=== PATIENT | female | born 1965 | race Caucasian/White ===

== ENCOUNTER → 2022-05-28 07:11 | Outpatient (CLI) | payer BC, SELFPAY ==
[2022-05-28 19:49] LABS: Basophils # 0.1 K/mm3 (0-0.2); Eosinophils # 0.3 K/mm3 (0.0-0.4); Eosinophils % 3.6 % (0.1-12.0); Hemoglobin 15.1 g/dL (12.2-16.2); Lymphocytes # 1.9 K/mm3 (0.7-4.5); Lymphocytes % 27.4 % (10-50); Mean Corpuscular HGB Conc 31.5 g/dL (31.8-35.4); Mean Corpuscular Hemoglobin 30.3 pg (27.0-31.2); Mean Corpuscular Volume 96.2 fl (81-99); Mean Platelet Volume 9.2 fl (7.4-10.4); Monocytes # 0.4 K/mm3 (0.1-1.0); Monocytes % 5.3 % (1.7-9.3); Neutrophils # 4.2 K/mm3 (1.8-7.8); Neutrophils % 62.6 % (37.0-80.0); Platelet Count 374 K/mm3 (142-424); Red Blood Count 4.99 M/mm3 (4.20-5.40); Red Cell Distribution Width 13.7 % (11.5-17.5); White Blood Count 6.8 K/mm3 (4.8-10.8)
[2022-05-28 21:44] LABS: Alanine Aminotransferase 30 U/L (12-78); Albumin Level 4.5 g/dl (3.5-5.0); Albumin/Globulin Ratio 1.7 (1.1-1.8); Alkaline Phosphatase 148 U/L (38-126); Anion Gap 16.1 mEq/L (5-15); Aspartate Amino Transferase 30 U/L (14-36); Bilirubin,Total 0.2 mg/dl (0.2-1.3); Blood Urea Nitrogen 15 mg/dl (7-17); Carbon Dioxide 25 mmol/L (22.0-30.0); Chloride 105 mmol/L (98-107); Cholesterol 188 mg/dl (140-200); Estimated Glomerular Filt Rate 103 ml/min (>60); GFR (African American) 125 ML/MIN (>60); Globulin 2.7 g/dL (1.3-3.2); Glucose 124 mg/dl (74-100); HDL Cholesterol 47 mg/dl (40-60); Potassium 5.1 mmoL/L (3.5-5.1); Sodium 141 mmol/L (136-145); Total Protein,Serum 7.2 g/dl (6.3-8.2); Triglycerides 228 mg/dl (30-150); VLDL Cholesterol 46 mg/dL (0-40)
[2022-05-30 09:00] LABS: Direct LDL Cholesterol 95 mg/dL (100-129)
== END ==
PROVIDERS: PCP Nurse Practitioner; Visit Provider Nurse Practitioner
DX: E11.9 Type 2 diabetes mellitus without complications (principal); E78.5 Hyperlipidemia, unspecified; Z13.29 Encounter for screening for other suspected endocrine disorder; Z79.84 Long term (current) use of oral hypoglycemic drugs; Z79.899 Other long term (current) drug therapy
CPT/HCPCS: 80053; 80061; 82043; 84443; 85025

== ENCOUNTER → 2022-08-19 08:24 | Outpatient (CLI) | payer BC, SELFPAY ==
[2022-08-19 19:52] LABS: Anion Gap 16.9 mEq/L (5-15); Blood Urea Nitrogen 12 mg/dl (7-17); Calcium 10.1 mg/dl (8.4-10.2); Carbon Dioxide 28 mmol/L (22.0-30.0); Chloride 104 mmol/L (98-107); Estimated Glomerular Filt Rate 103 ml/min (>60); GFR (African American) 125 ML/MIN (>60); Glucose 121 mg/dl (74-100); Potassium 4.9 mmoL/L (3.5-5.1); Sodium 144 mmol/L (136-145)
== END ==
PROVIDERS: PCP Nurse Practitioner; Visit Provider Nurse Practitioner
DX: E11.9 Type 2 diabetes mellitus without complications (principal); Z79.84 Long term (current) use of oral hypoglycemic drugs
CPT/HCPCS: 80048

== ENCOUNTER → 2022-11-20 23:49 | Outpatient (CLI) | payer BC, SELFPAY ==
[2022-11-20 19:07] LABS: Coronavirus 19, PCR Not Detected (NotDetected); Influenza A, PCR Not Detected (NotDetected); Influenza B, PCR Not Detected (NotDetected)
[2022-11-20 19:35] LABS: Microalbumin/Creatinine Ratio 8.8
[2022-11-20 19:41] LABS: Creatinine,Urine Random 81 mg/dL (Not Estab.)
[2022-11-20 19:47] LABS: Alanine Aminotransferase 26 U/L (12-78); Albumin Level 4.6 g/dl (3.5-5.0); Albumin/Globulin Ratio 1.8 (1.1-1.8); Alkaline Phosphatase 126 U/L (38-126); Anion Gap 9.6 mEq/L (5-15); Aspartate Amino Transferase 27 U/L (14-36); Bilirubin,Total 0.5 mg/dl (0.2-1.3); Blood Urea Nitrogen 15 mg/dl (7-17); Calcium 9.5 mg/dl (8.4-10.2); Carbon Dioxide 26 mmol/L (22.0-30.0); Chloride 108 mmol/L (98-107); Chol/HDL Ratio 3.4 (1-3.5); Cholesterol 175 mg/dl (140-200); Estimated Glomerular Filt Rate 103 ml/min (>60); GFR (African American) 125 ML/MIN (>60); Globulin 2.6 g/dL (1.3-3.2); Glucose 125 mg/dl (74-100); HDL Cholesterol 51 mg/dl (40-60); Potassium 4.6 mmoL/L (3.5-5.1); Sodium 139 mmol/L (136-145); Total Protein,Serum 7.2 g/dl (6.3-8.2); Triglycerides 193 mg/dl (30-150); VLDL Cholesterol 39 mg/dL (0-40)
[2022-11-20 19:48] LABS: Basophils # 0.1 K/mm3 (0-0.2); Basophils % 0.9 % (0.1-2.0); Eosinophils # 0.3 K/mm3 (0.0-0.4); Hemoglobin 15.3 g/dL (12.2-16.2); Lymphocytes # 1.6 K/mm3 (0.7-4.5); Lymphocytes % 21.5 % (10-50); Mean Corpuscular Hemoglobin 30.2 pg (27.0-31.2); Mean Corpuscular Volume 94.4 fl (81-99); Mean Platelet Volume 8.9 fl (7.4-10.4); Monocytes # 0.4 K/mm3 (0.1-1.0); Monocytes % 5.4 % (1.7-9.3); Neutrophils % 68.1 % (37.0-80.0); Platelet Count 342 K/mm3 (142-424); Red Blood Count 5.08 M/mm3 (4.20-5.40); Red Cell Distribution Width 13.8 % (11.5-17.5); White Blood Count 7.3 K/mm3 (4.8-10.8)
[2022-11-20 20:08] LABS: Direct LDL Cholesterol 84.51 mg/dL (100-129)
[2022-11-20 20:50] LABS: Hemoglobin A1C 6.2 % (4.0-6.0)
== END ==
PROVIDERS: PCP Nurse Practitioner; Visit Provider Nurse Practitioner
DX: J01.00 Acute maxillary sinusitis, unspecified (principal); E11.9 Type 2 diabetes mellitus without complications; E78.5 Hyperlipidemia, unspecified; Z79.84 Long term (current) use of oral hypoglycemic drugs
CPT/HCPCS: 80053; 80061; 82043; 82570; 83036; 85025; C9803; U0003; U0005

== ENCOUNTER → 2023-05-06 23:10 | Outpatient (CLI) | payer BC, SELFPAY ==
[2023-05-06 19:27] LABS: Alanine Aminotransferase 20 U/L (12-78); Albumin Level 4.6 g/dl (3.5-5.0); Albumin/Globulin Ratio 1.8 (1.1-1.8); Alkaline Phosphatase 113 U/L (38-126); Aspartate Amino Transferase 25 U/L (14-36); Bilirubin,Total 0.3 mg/dl (0.2-1.3); Blood Urea Nitrogen 11 mg/dl (7-17); Carbon Dioxide 26 mmol/L (22.0-30.0); Chloride 107 mmol/L (98-107); Chol/HDL Ratio 2.5 (1-3.5); Cholesterol 116 mg/dl (140-200); Estimated Glomerular Filt Rate 86 ml/min (>60); GFR (African American) 104 ML/MIN (>60); Globulin 2.6 g/dL (1.3-3.2); Glucose 88 mg/dl (74-100); HDL Cholesterol 46 mg/dl (40-60); Sodium 142 mmol/L (136-145); Total Protein,Serum 7.2 g/dl (6.3-8.2); Triglycerides 84 mg/dl (30-150); VLDL Cholesterol 17 mg/dL (0-40)
[2023-05-06 19:38] LABS: Direct LDL Cholesterol 52.52 mg/dL (100-129)
[2023-05-06 19:40] LABS: Hemoglobin A1C 5.5 % (4.0-6.0)
== END ==
PROVIDERS: PCP Nurse Practitioner; Visit Provider Nurse Practitioner
DX: E11.9 Type 2 diabetes mellitus without complications (principal); E78.5 Hyperlipidemia, unspecified; E66.9 Obesity, unspecified; Z79.84 Long term (current) use of oral hypoglycemic drugs
CPT/HCPCS: 80053; 80061; 83036

== ENCOUNTER → 2023-05-16 15:48 | Outpatient (CLI) | payer BC, SELFPAY ==
--- NOTE | 2023-05-16 15:54 | US_ITS ---
FINAL REPORT TECHNIQUE: Real-time grayscale and color ultrasound of the thyroid was performed. CLINICAL HISTORY: thyroid nodularity COMPARISON: None FINDINGS: The thyroid gland measures 45 mm on the right and 43 mm on the left. The isthmus measures 2 mm. The parenchyma is within normal limits. Nodules: Left 4 x 4 x 3 mm cystic TR 1 nodule. IMPRESSION: Left cystic TR 1 nodule. No follow-up recommended per TI-RADS criteria. Reviewed, Interpreted and Dictated by Carlos Montes III, MD Transcribed by Ebony Maher Authenticated and . [facility]
== END ==
PROVIDERS: PCP Nurse Practitioner; Visit Provider Nurse Practitioner
DX: E04.1 Nontoxic single thyroid nodule (principal)
CPT/HCPCS: 76536

== ENCOUNTER → 2023-08-05 08:45 | Outpatient (CLI) | payer BC, SELFPAY ==
[2023-08-05 18:44] LABS: Alanine Aminotransferase 27 U/L (12-78); Albumin Level 4.8 g/dl (3.5-5.0); Albumin/Globulin Ratio 1.7 (1.1-1.8); Alkaline Phosphatase 111 U/L (38-126); Anion Gap 17.4 mEq/L (5-15); Aspartate Amino Transferase 33 U/L (14-36); Bilirubin,Total 0.4 mg/dl (0.2-1.3); Blood Urea Nitrogen 13 mg/dl (7-17); Carbon Dioxide 25 mmol/L (22.0-30.0); Chloride 102 mmol/L (98-107); Estimated Glomerular Filt Rate 86 ml/min (>60); GFR (African American) 104 ML/MIN (>60); Globulin 2.8 g/dL (1.3-3.2); Glucose 103 mg/dl (74-100); Potassium 5.4 mmoL/L (3.5-5.1); Sodium 139 mmol/L (136-145); Total Protein,Serum 7.6 g/dl (6.3-8.2)
[2023-08-05 18:58] LABS: Basophils # 0.1 K/mm3 (0-0.2); Basophils % 0.7 % (0.1-2.0); Eosinophils # 0.1 K/mm3 (0.0-0.4); Eosinophils % 1.9 % (0.1-12.0); Hematocrit 49.4 % (37.0-47.0); Hemoglobin 16.9 g/dL (12.2-16.2); Lymphocytes # 1.9 K/mm3 (0.7-4.5); Lymphocytes % 24.9 % (10-50); Mean Corpuscular HGB Conc 34.2 g/dL (31.8-35.4); Mean Corpuscular Volume 93.8 fl (81-99); Mean Platelet Volume 8.6 fl (7.4-10.4); Monocytes # 0.4 K/mm3 (0.1-1.0); Monocytes % 5.1 % (1.7-9.3); Neutrophils # 5.1 K/mm3 (1.8-7.8); Neutrophils % 67.5 % (37.0-80.0); Platelet Count 309 K/mm3 (142-424); Red Blood Count 5.27 M/mm3 (4.20-5.40); Red Cell Distribution Width 13.3 % (11.5-17.5); White Blood Count 7.5 K/mm3 (4.8-10.8)
[2023-08-05 19:40] LABS: Hemoglobin A1C 5.1 % (4.0-6.0)
== END ==
PROVIDERS: PCP Nurse Practitioner; Visit Provider Nurse Practitioner
DX: E11.9 Type 2 diabetes mellitus without complications (principal); Z79.84 Long term (current) use of oral hypoglycemic drugs
CPT/HCPCS: 80053; 83036; 85025

== ENCOUNTER 2023-12-01 18:24 | Outpatient (CLI) | payer BC, SELFPAY ==
[2023-12-01 17:39] LABS: Basophils # 0.1 K/mm3 (0-0.2); Eosinophils # 0.2 K/mm3 (0.0-0.4); Eosinophils % 2.7 % (0.1-12.0); Hematocrit 51.1 % (37.0-47.0); Hemoglobin 16.3 g/dL (12.2-16.2); Lymphocytes # 2.1 K/mm3 (0.7-4.5); Lymphocytes % 28.7 % (10-50); Mean Corpuscular HGB Conc 31.9 g/dL (31.8-35.4); Mean Corpuscular Volume 97.1 fl (81-99); Mean Platelet Volume 8.6 fl (7.4-10.4); Monocytes # 0.4 K/mm3 (0.1-1.0); Monocytes % 5.1 % (1.7-9.3); Neutrophils # 4.5 K/mm3 (1.8-7.8); Neutrophils % 62.5 % (37.0-80.0); Platelet Count 344 K/mm3 (142-424); Red Blood Count 5.26 M/mm3 (4.20-5.40); Red Cell Distribution Width 13.9 % (11.5-17.5); White Blood Count 7.2 K/mm3 (4.8-10.8)
[2023-12-01 17:45] LABS: Alanine Aminotransferase 19 U/L (12-78); Albumin Level 4.3 g/dl (3.5-5.0); Albumin/Globulin Ratio 1.7 (1.1-1.8); Alkaline Phosphatase 105 U/L (38-126); Anion Gap 7.4 mEq/L (5-15); Aspartate Amino Transferase 26 U/L (14-36); Bilirubin,Total 0.3 mg/dl (0.2-1.3); Blood Urea Nitrogen 10 mg/dl (7-17); Calcium 9.9 mg/dl (8.4-10.2); Carbon Dioxide 29 mmol/L (22.0-30.0); Chloride 108 mmol/L (98-107); Chol/HDL Ratio 2.9 (1-3.5); Cholesterol 153 mg/dl (140-200); Estimated Glomerular Filt Rate 86 ml/min (>60); GFR (African American) 104 ML/MIN (>60); Globulin 2.5 g/dL (1.3-3.2); Glucose 87 mg/dl (74-100); HDL Cholesterol 53 mg/dl (40-60); Potassium 5.4 mmoL/L (3.5-5.1); Sodium 139 mmol/L (136-145); Total Protein,Serum 6.8 g/dl (6.3-8.2); Triglycerides 102 mg/dl (30-150); VLDL Cholesterol 20 mg/dL (0-40)
[2023-12-01 17:55] LABS: Direct LDL Cholesterol 70.76 mg/dL (100-129)
[2023-12-01 18:00] LABS: 25-OH Vitamin D, Total 38.7 ng/mL (30-100)
[2023-12-01 18:14] LABS: Creatinine,Urine Random 115 mg/dL (Not Estab.); Microalbumin < 6.000 mg/L (0-16.7)
[2023-12-01 18:15] LABS: Thyroid Stimulating Hormone 1.19 uIU/mL (0.465-4.68)
[2023-12-01 18:30] LABS: Hemoglobin A1C 5.1 % (4.0-6.0)
[2023-12-01 18:34] LABS: Vitamin B12 356 pg/mL (239-931)
== END 2023-12-01 23:59 ==
LOC: LAB.DROPOF 18:24
PROVIDERS: PCP Nurse Practitioner; Visit Provider Nurse Practitioner
DX: E11.9 Type 2 diabetes mellitus without complications (principal); E66.9 Obesity, unspecified; E78.5 Hyperlipidemia, unspecified; I10 Essential (primary) hypertension; Z79.84 Long term (current) use of oral hypoglycemic drugs; Z79.899 Other long term (current) drug therapy
CPT/HCPCS: 80053; 80061; 82043; 82306; 82570; 82607; 83036; 84443; 85025

== ENCOUNTER 2023-12-18 19:01 | Outpatient (CLI) | payer BC, SELFPAY ==
[2023-12-18 18:38] LABS: Chloride 108 mmol/L (98-107)
[2023-12-18 18:39] LABS: Potassium 5.1 mmoL/L (3.5-5.1); Sodium 141 mmol/L (136-145)
[2023-12-18 18:41] LABS: Blood Urea Nitrogen 12 mg/dl (7-17); Estimated Glomerular Filt Rate 86 ml/min (>60); GFR (African American) 104 ML/MIN (>60)
[2023-12-18 18:42] LABS: Anion Gap 9.1 mEq/L (5-15); Calcium 9.6 mg/dl (8.4-10.2); Carbon Dioxide 29 mmol/L (22.0-30.0); Glucose 89 mg/dl (74-100)
== END 2023-12-18 23:59 ==
LOC: LAB.DROPOF 19:01
PROVIDERS: PCP Nurse Practitioner; Visit Provider Nurse Practitioner
DX: E87.5 Hyperkalemia (principal)
CPT/HCPCS: 80048

== ENCOUNTER 2024-03-02 15:45 | Outpatient (CLI) | payer BC, SELFPAY ==
[2024-03-02 18:23] LABS: Hemoglobin A1C 5.1 % (4.0-6.0)
[2024-03-02 18:50] LABS: Alanine Aminotransferase 22 U/L (12-78); Albumin Level 4.5 g/dl (3.5-5.0); Albumin/Globulin Ratio 1.8 (1.1-1.8); Alkaline Phosphatase 92 U/L (38-126); Anion Gap 14.7 mEq/L (5-15); Aspartate Amino Transferase 28 U/L (14-36); Bilirubin,Total 0.4 mg/dl (0.2-1.3); Blood Urea Nitrogen 12 mg/dl (7-17); Carbon Dioxide 25 mmol/L (22.0-30.0); Chloride 105 mmol/L (98-107); Estimated Glomerular Filt Rate 86 ml/min (>60); GFR (African American) 104 ML/MIN (>60); Globulin 2.5 g/dL (1.3-3.2); Glucose 84 mg/dl (74-100); Potassium 4.7 mmoL/L (3.5-5.1); Sodium 140 mmol/L (136-145)
== END 2024-03-02 23:59 | disposition home or self-care (01) ==
LOC: LAB.DROPOF 03-03 15:45
PROVIDERS: PCP Nurse Practitioner; Visit Provider Nurse Practitioner
DX: Z79.84 Long term (current) use of oral hypoglycemic drugs (principal); Z79.85 Long-term (current) use of injectable non-insulin antidiabetic drugs
CPT/HCPCS: 80053; 83036

== ENCOUNTER 2024-06-08 08:52 | Outpatient (CLI) | payer BC, SELFPAY ==
[2024-06-08 19:21] LABS: Alanine Aminotransferase 26 U/L (12-78); Albumin Level 4.3 g/dl (3.5-5.0); Albumin/Globulin Ratio 1.5 (1.1-1.8); Alkaline Phosphatase 86 U/L (38-126); Anion Gap 10.7 mEq/L (5-15); Aspartate Amino Transferase 31 U/L (14-36); Bilirubin,Total 0.5 mg/dl (0.2-1.3); Blood Urea Nitrogen 12 mg/dl (7-17); Calcium 9.7 mg/dl (8.4-10.2); Carbon Dioxide 26 mmol/L (22.0-30.0); Chloride 106 mmol/L (98-107); Estimated Glomerular Filt Rate 102 ml/min (>60); GFR (African American) 124 ML/MIN (>60); Globulin 2.8 g/dL (1.3-3.2); Glucose 85 mg/dl (74-100); Potassium 4.7 mmoL/L (3.5-5.1); Sodium 138 mmol/L (136-145); Total Protein,Serum 7.1 g/dl (6.3-8.2)
[2024-06-08 19:53] LABS: Thyroid Stimulating Hormone 1.13 uIU/mL (0.465-4.68)
[2024-06-08 19:58] LABS: Hemoglobin A1C 5.1 % (4.0-6.0)
== END 2024-06-08 23:59 | disposition home or self-care (01) ==
LOC: LAB.DROPOF 06-09 11:03
PROVIDERS: PCP Nurse Practitioner; Visit Provider Nurse Practitioner
DX: E11.9 Type 2 diabetes mellitus without complications (principal); E78.5 Hyperlipidemia, unspecified; Z68.20 Body mass index [BMI] 20.0-20.9, adult; Z79.84 Long term (current) use of oral hypoglycemic drugs; Z79.85 Long-term (current) use of injectable non-insulin antidiabetic drugs
CPT/HCPCS: 80053; 83036; 84443

== ENCOUNTER 2024-09-07 09:05 | Outpatient (CLI) | payer BC, SELFPAY ==
[2024-09-07 19:26] LABS: Hemoglobin A1C 5.1 % (4.0-6.0)
[2024-09-07 20:19] LABS: Alanine Aminotransferase 22 U/L (12-78); Albumin Level 4.3 g/dl (3.5-5.0); Alkaline Phosphatase 92 U/L (38-126); Anion Gap 12.3 mEq/L (5-15); Aspartate Amino Transferase 31 U/L (14-36); Bilirubin,Total 0.6 mg/dl (0.2-1.3); Blood Urea Nitrogen 15 mg/dl (7-17); Calcium 9.8 mg/dl (8.4-10.2); Carbon Dioxide 27 mmol/L (22.0-30.0); Chloride 106 mmol/L (98-107); Chol/HDL Ratio 2.2 (1-3.5); Cholesterol 131 mg/dl (140-200); Estimated Glomerular Filt Rate 102 ml/min (>60); GFR (African American) 124 ML/MIN (>60); Globulin 2.2 g/dL (1.3-3.2); Glucose 80 mg/dl (74-100); HDL Cholesterol 59 mg/dl (40-60); Potassium 5.3 mmoL/L (3.5-5.1); Sodium 140 mmol/L (136-145); Total Protein,Serum 6.5 g/dl (6.3-8.2); Triglycerides 78 mg/dl (30-150); VLDL Cholesterol 16 mg/dL (0-40)
[2024-09-07 20:31] LABS: Direct LDL Cholesterol 59.76 mg/dL (100-129)
== END 2024-09-07 23:59 | disposition home or self-care (01) ==
LOC: LAB.DROPOF 09-08 10:45
PROVIDERS: PCP Nurse Practitioner; Visit Provider Nurse Practitioner
DX: E78.5 Hyperlipidemia, unspecified (principal); E11.9 Type 2 diabetes mellitus without complications; Z79.85 Long-term (current) use of injectable non-insulin antidiabetic drugs; Z79.84 Long term (current) use of oral hypoglycemic drugs
CPT/HCPCS: 80053; 80061; 83036

== ENCOUNTER 2024-12-07 08:58 | Outpatient (CLI) | payer BC, SELFPAY ==
[2024-12-07 19:49] LABS: Basophils % 0.6 % (0.1-2.0); Eosinophils # 0.2 K/mm3 (0.0-0.4); Eosinophils % 2.7 % (0.1-12.0); Hematocrit 45.6 % (37.0-47.0); Hemoglobin 15.2 g/dL (12.2-16.2); Lymphocytes # 1.9 K/mm3 (0.7-4.5); Lymphocytes % 29.6 % (10-50); Mean Corpuscular HGB Conc 33.3 g/dL (31.8-35.4); Mean Corpuscular Hemoglobin 31.2 pg (27.0-31.2); Mean Corpuscular Volume 93.6 fl (81-99); Mean Platelet Volume 9.5 fl (7.4-10.4); Monocytes # 0.4 K/mm3 (0.1-1.0); Monocytes % 6.2 % (1.7-9.3); Neutrophils # 3.8 K/mm3 (1.8-7.8); Neutrophils % 60.6 % (37.0-80.0); Platelet Count 335 K/mm3 (142-424); Red Blood Count 4.87 M/mm3 (4.20-5.40); Red Cell Distribution Width 12.9 % (11.5-17.5); White Blood Count 6.3 K/mm3 (4.8-10.8)
[2024-12-07 21:19] LABS: Alanine Aminotransferase 22 U/L (12-78); Albumin Level 4.3 g/dl (3.5-5.0); Alkaline Phosphatase 91 U/L (38-126); Anion Gap 10.6 mEq/L (5-15); Aspartate Amino Transferase 26 U/L (14-36); Bilirubin,Total 0.3 mg/dl (0.2-1.3); Blood Urea Nitrogen 10 mg/dl (7-17); Calcium 9.4 mg/dl (8.4-10.2); Carbon Dioxide 26 mmol/L (22.0-30.0); Chloride 106 mmol/L (98-107); Estimated Glomerular Filt Rate 102 ml/min (>60); GFR (African American) 124 ML/MIN (>60); Globulin 2.1 g/dL (1.3-3.2); Glucose 76 mg/dl (74-100); Potassium 4.6 mmoL/L (3.5-5.1); Sodium 138 mmol/L (136-145); Total Protein,Serum 6.4 g/dl (6.3-8.2)
[2024-12-07 21:58] LABS: Creatinine,Urine Random 79 mg/dL (Not Estab.)
[2024-12-07 22:06] LABS: Microalbumin < 6.000 mg/L (0-16.7)
[2024-12-07 22:09] LABS: Vitamin B12 921 pg/mL (239-931)
[2024-12-07 23:15] LABS: 25-OH Vitamin D, Total 22.9 ng/mL (30-100)
== END 2024-12-07 23:59 | disposition home or self-care (01) ==
LOC: LAB.DROPOF 12-09 09:31
PROVIDERS: PCP Nurse Practitioner; Visit Provider Nurse Practitioner
DX: E11.9 Type 2 diabetes mellitus without complications (principal); E78.5 Hyperlipidemia, unspecified; E66.9 Obesity, unspecified
CPT/HCPCS: 80053; 82043; 82306; 82570; 82607; 83036; 85025

== ENCOUNTER 2025-03-08 08:45 | Outpatient (CLI) | payer BC, SELFPAY ==
[2025-03-08 19:32] LABS: Alanine Aminotransferase 19 U/L (12-78); Albumin Level 4.4 g/dl (3.5-5.0); Albumin/Globulin Ratio 1.9 (1.1-1.8); Alkaline Phosphatase 77 U/L (38-126); Anion Gap 9.5 mEq/L (5-15); Aspartate Amino Transferase 27 U/L (14-36); Bilirubin,Total 0.5 mg/dl (0.2-1.3); Blood Urea Nitrogen 17 mg/dl (7-17); Calcium 9.5 mg/dl (8.4-10.2); Carbon Dioxide 27 mmol/L (22.0-30.0); Chloride 105 mmol/L (98-107); Chol/HDL Ratio 2.2 (1-3.5); Cholesterol 159 mg/dl (140-200); Estimated Glomerular Filt Rate 102 ml/min (>60); GFR (African American) 124 ML/MIN (>60); Globulin 2.3 g/dL (1.3-3.2); Glucose 74 mg/dl (74-100); HDL Cholesterol 72 mg/dl (40-60); Potassium 4.5 mmoL/L (3.5-5.1); Sodium 137 mmol/L (136-145); Total Protein,Serum 6.7 g/dl (6.3-8.2); Triglycerides 99 mg/dl (30-150); VLDL Cholesterol 20 mg/dL (0-40)
[2025-03-08 19:43] LABS: 25-OH Vitamin D, Total 46.2 ng/mL (30-100)
[2025-03-08 19:57] LABS: Hemoglobin A1C 5.2 % (4.0-6.0)
[2025-03-08 20:02] LABS: Thyroid Stimulating Hormone 1.17 uIU/mL (0.465-4.68)
--- OUTSIDE RECORDS SUMMARY | 2025-03-09 11:54 | XMS_ITS | Clinical Summary ---
Author Organization [facility] Address [address] [place] [address] Phone Care Team Providers Care Nocturnist Name Role Phone Unavailable Primary Care Provider Unavailabl e Allergies Active Allergy Reactions Criticality Noted Date Comments Cefaclor Itching 08/16/2019 Medications metFORMIN XR (GLUCOPHAGE-XR) 500 mg Oral Tablet Sustained Release 24 hr Take 500 mg by mouth 3 times daily. Active atorvastatin (LIPITOR) 20 mg Oral Tablet Take 20 mg by mouth nightly. Active aspirin 325 mg Oral Tablet Take 325 mg by mouth daily. Active azelastine-flut icasone (DYMISTA) 137-50 mcg/spray Nasl [place], Non-Aerosol by Nasal route daily. Active montelukast (SINGULAIR) 10 mg Oral Tablet Take by mouth every evening. Active methylPREDNISol one (MEDROL, CATHY,) 4 mg Oral Tablets, Dose PackIndications :Allergic rhinitis, unspecified seasonality, unspecified trigger See package instructions 1 Tablet 4 Active Active Problems No known active problems Surgical History Surgery Date Site/Laterality Comments SINUS SURGERY TONSILLECTOMY SECTION KNEE ARTHROSCOPY 08/19/2019 Right RIGHT KNEE ARTHROSCOPY PARTIAL MEDIAL MENISCUS ROOT REPAIR, CHONDROPLASTY PATELLA, MEDIAL FEMORAL CONDYLE; Surgeon: Kashmir Mishra MD; Location: [facility]; Service: Orthopedics Medical devices from this surgery are in the Medical Devices section. Medical History Medical History Date Comments Diabetes mellitus (HCC) Hyperlipidemia Environmental allergies Family History Medical History Relation Name Comments Stroke Father Diabetes Mother Relation Name Status Comments Father Mother Social History Tobacco Use Types Packs/Day Years Used Date Smoking Tobacco: Every Day Cigarettes 1 25 Smokeless Tobacco: Never Tobacco Cessation:Ready to Q uit: Yes Alcohol Use Standard Drinks/Week Comments Never 0 (1 standard drink = 0.6 oz pur e alcohol) AUDIT-C Answer Date Recorded Frequency of Alcohol Consumption Never 08/17/2019 Average Number of Drinks Not on file 019 Frequency of Binge Drinking Not on file 07/30 Comments No Sex and Gender Information Value Date Recorded Sex Assigned at Not on file Legal Sex Female 11:08 AM EDT Gender Identity Not on file Sexual Orientation Not on file Obstetrics History Last Filed Vital Signs Vital Sign Reading Time Taken Comments Blood Pressure 121/68 04/21/2024 4:19 PM EDT Pulse 72 04/21/2024 4:19 PM EDT Temperature 36.4 C (97.5 F) 04/21/2024 4:19 PM EDT Respiratory Rate 16 08/19/2019 1:45 PM EST Oxygen Saturation 98% 08/19/2019 1:45 PM EST Inhaled Oxygen Concentration - - Weight 55.6 kg (122 lb 9.6 oz) 04/21/2024 4:19 P M EDT Height 165.1 cm (5' 5 ) 04/21/2024 4:19 PM EDT Body Mass Index 20.4 04/21/2024 4:19 PM EDT Plan of Treatment Health Maintenance Due Date Last Done Comments Annual Wellness Exam 1968 Hepatitis C Screening 1983 DTaP/TDaP/Td (1 - Tdap) 1984 Hepatitis B Vaccine (1 of 3 - 19+ 3-dose series) 1984 Pneumococcal Vaccine 50+ (1 of 2 - PCV) 1984 Cervical Cancer Screening 1986 Pap Smear 1986 HPV/Pap Cotest 1995 Breast Cancer Screening 2005 Cologuard 2010 Colon Cancer Screening 2010 Colonoscopy 2010 FIT 2010 Sigmoidoscopy 2010 Virtual Colonography 2010 Low Dose Lung Cancer Screening 2015 Zoster (1 of 2) 2015 COVID-19 Vaccine (3 - 2023-2 5 season) 2024 01/29/2021, 01/01/2021 Influenza Vaccine (Season Ended) 2025 Meningococcal B Vaccine Aged Out No l onger eligible based on patient's age to complete this topic Medical Devices Implanted Type Area Linoleum Tile Layer Device Identifier Shelf Expiration Date Model / Serial / Lot Button Dog Bone - [id number] Implanted:Qty: 1 on 08/19/2019 by Kashmir Mishra MD at [facility] Right: Knee AR[employer]X 04/28/2024 [id number]-[id number] / / [id number] Insurance ANTHEM PPO ANTHEM PPO * Guarantor: Michelle Santiago Account Type Relation to Patient Date of Phone [place]illing Address [place] Personal Family Self Advance Directives For more information, please contact: [phone] * Full Code (Latest Code Status on File) Date Activated Date Inactivated Comments 08/19/2019 12:33 PM 08/19/2019 6:06 PM
== END 2025-03-08 23:59 | disposition home or self-care (01) ==
LOC: LAB.DROPOF 03-09 11:52
PROVIDERS: PCP Nurse Practitioner; Visit Provider Nurse Practitioner
DX: E78.5 Hyperlipidemia, unspecified (principal); E11.9 Type 2 diabetes mellitus without complications; E66.9 Obesity, unspecified; E55.9 Vitamin D deficiency, unspecified
CPT/HCPCS: 80053; 80061; 82306; 83036; 84443

== ENCOUNTER 2025-06-07 08:50 | Outpatient (CLI) | payer BC, SELFPAY ==
[2025-06-07 15:05] LABS: Albumin Level 4.5 g/dl (3.5-5.0); Chloride 106 mmol/L (98-107); Potassium 5.7 mmoL/L (3.5-5.1); Sodium 141 mmol/L (136-145)
[2025-06-07 15:08] LABS: Alanine Aminotransferase 16 U/L (12-78); Albumin/Globulin Ratio 1.7 (1.1-1.8); Alkaline Phosphatase 87 U/L (38-126); Anion Gap 12.7 mEq/L (5-15); Aspartate Amino Transferase 38 U/L (14-36); Bilirubin,Total 0.5 mg/dl (0.2-1.3); Blood Urea Nitrogen 14 mg/dl (7-17); Calcium 10.2 mg/dl (8.4-10.2); Carbon Dioxide 28 mmol/L (22.0-30.0); Creatinine,Serum 0.60 mg/dl (0.52-1.04); Estimated Glomerular Filt Rate 102 ml/min (>60); GFR (African American) 123 ML/MIN (>60); Globulin 2.6 g/dL (1.3-3.2); Glucose 95 mg/dl (74-100); Total Protein,Serum 7.1 g/dl (6.3-8.2)
[2025-06-07 15:13] LABS: Hemoglobin A1C 5.7 % (4.0-6.0)
--- OUTSIDE RECORDS SUMMARY | 2025-06-08 10:32 | XMS_ITS | Clinical Summary ---
Author Organization [facility] Address [address] [place] [address] Phone Care Team Providers Care Event Marketing Intern Name Role Phone Unavailable Primary Care Provider [...] Active azelastine-flut icasone (DYMISTA) 137-50 mcg/spray Nasl [place], Non-Aerosol by Nasal route daily. Active montelukast [...] FEMORAL CONDYLE; Surgeon: Kashmir Mishra MD; Location: [facility]; Service: Orthopedics Medical devices from [...] Screening 1983 DTaP/TDaP/Td (1 - Tdap) 1984 Pneumococcal Vaccine 50+ (1 of 2 - PCV) 1984 Cervical Cancer Screening 1986 Pap Smear 1986 HPV/Pap Cotest 1995 Breast Cancer Screening 2005 Cologuard 2010 Colon Cancer Screening 2010 Colonoscopy 2010 FIT 2010 Sigmoidoscopy 2010 Virtual Colonography 2010 Low Dose Lung Cancer Screening 2015 Zoster (1 of 2) 2015 COVID-19 Vaccine (3 - 2024-2 6 season) 2025 01/29/2021, 01/01/2021 Influenza Vaccine (#1) 2025 Hepatitis B Vaccine Aged Out No longe r eligible based on patient's age to complete this topic Meningococcal B Vaccine Aged Out No l onger eligible based on patient's age to complete this topic Medical Devices Implanted Type Area Ore Crusher Device Identifier Shelf Expiration Date Model / Serial / Lot Button Dog Bone - [id number] Implanted:Qty: 1 on 08/19/2019 by Kashmir Mishra MD at [facility] Right: Knee ARTHREX 04/28/2024 [id number]-2270 / / [id number] Insurance ANTHEM PPO ANTHEM PPO * Guarantor: Michelle Santiago Account Type Relation to Patient Date of Phone Billing Address [place] Personal Family Self Advance Directives For more information, please contact: [phone] * Full Code (Latest Code Status on File) Date Activated Date Inactivated Comments 08/19/2019 12:33 PM 08/19/2019 6:06 PM
== END 2025-06-07 23:59 | disposition home or self-care (01) ==
LOC: LAB.DROPOF 06-08 10:22
PROVIDERS: PCP Nurse Practitioner; Visit Provider Nurse Practitioner
DX: E11.9 Type 2 diabetes mellitus without complications (principal)
CPT/HCPCS: 80053; 83036